=== PATIENT | male | born 2000 | race Caucasian/White ===

== ENCOUNTER 2022-12-18 23:42 | Inpatient (IN) | payer MEDICAID, OTHER, SELFPAY ==
[~2022-12-18] VITALS: Ht 185.4 cm; Wt 106.8 kg
[2022-12-18] MEDS ORDERED: MIDAZOLAM INJ 2MG/2ML VIAL IM ONE (23:45)
[2022-12-18] MEDS ORDERED: HALOPERIDOL 5MG/ML 1ML VIAL IM ONE (23:45)
[2022-12-18] MEDS ORDERED: diphenhydrAMINE 50MG/ML VIAL IM ONE (23:45)
[2022-12-19] MEDS ORDERED: UNRESOLVED CLARIFICATION ENTRY XX SCH (00:01)
[2022-12-19] MEDS ORDERED: ISOVUE-370 76% 100ML VIAL As Ordered ONE (00:27)
[2022-12-19 00:30] LABS: VENOUS BASE EXCESS -3.9 (-2.0-2.0); VENOUS HCO3 21.4 MMOL/L (23.0-27.0); VENOUS O2 SATURATION 98.2 % (60.0-80.0); VENOUS PARTIAL PRESSURE CO2 39.6 mmHg (38.0-50.0); VENOUS PARTIAL PRESSURE O2 135.9 mmHg (30.0-50.0); VENOUS STANDARD HCO3 21.3 MMOL/L; VENOUS TOTAL CO2 22.6 MMOL/L (24.0-28.0)
[2022-12-19 00:32] LABS: BASO % 0.5 % (0.0-1.0); EOS # 0.2 10^3/uL (0.0-0.5); EOS % 3.1 % (0.0-3.0); HEMATOCRIT 31.2 % (42.0-52.0); HEMOGLOBIN 10.5 g/dl (13.5-17.5); LYMPH # 2.4 10^3/uL (1.5-5.0); LYMPH % 41.1 % (24.0-44.0); MEAN CORPUSCULAR HEMOGLOBIN 29.7 pg (27.0-33.0); MEAN CORPUSCULAR HGB CONC 33.7 g/dl (32.0-36.5); MEAN CORPUSCULAR VOLUME 88.1 fl (80.0-96.0); MONO # 0.5 10^3/uL (0.0-0.8); MONO % 8.7 % (2.0-8.0); NEUTROPHILS # 2.6 10^3/uL (1.5-8.5); NEUTROPHILS % 46.1 % (36.0-66.0); PLATELET COUNT, AUTOMATED 150 10^3/uL (150-450); RED BLOOD COUNT 3.54 10^6/uL (4.30-6.10); WHITE BLOOD COUNT 5.7 10^3/uL (4.0-10.0)
[2022-12-19 00:40] LABS: APPEARANCE, URINE CLEAR (CLEAR); BACTERIA, URINE AUTO NEGATIVE (NEGATIVE); BILIRUBIN, URINE AUTO NEGATIVE (NEGATIVE); BLOOD, URINE BLOOD NEGATIVE (NEGATIVE); COLOR, URINE COLORLESS (YELLOW); GLUCOSE, URINE (UA) AUTO NEGATIVE (NEGATIVE); KETONE, URINE AUTO NEGATIVE (NEGATIVE); LEUKOCYTE ESTERASE, URINE AUTO NEGATIVE (NEGATIVE); NITRITE, URINE AUTO NEGATIVE (NEGATIVE); PROTEIN, URINE AUTO NEGATIVE (NEGATIVE); RBC, URINE AUTO 0 /HPF (0-3); SPECIFIC GRAVITY URINE AUTO 1.002 (1.002-1.035); SQUAMOUS EPITHELIAL CELL UR AU 0 /HPF (0-6); UROBILINOGEN, URINE AUTO 0.2 mg/dL (0.0-2.0); WBC, URINE AUTO 0 /HPF (0-3)
[2022-12-19 00:48] LABS: INR 0.97; PROTHROMBIN TIME 12.6 SECONDS (12.5-14.5)
[2022-12-19 00:49] LABS: PARTIAL THROMBOPLASTIN TIME 26.2 SECONDS (24.8-34.2)
[2022-12-19] MEDS ORDERED: DERMABOND TOPICAL SKIN ADHESIVE TOP ONE (00:55)
[2022-12-19 00:58] LABS: AMPHETAMINES LEVEL URINE NEGATIVE (NEGATIVE); BARBITURATES URINE NEGATIVE (NEGATIVE); CANNABINOIDS URINE NEGATIVE (NEGATIVE); COCAINE METABOLITE URINE NEGATIVE (NEGATIVE); METHADONE URINE NEGATIVE (NEGATIVE); OPIATES URINE NEGATIVE (NEGATIVE); PHENCYCLIDINE URINE NEGATIVE (NEGATIVE)
[2022-12-19 00:59] LABS: BENZODIAZEPINES URINE NEGATIVE (NEGATIVE)
[2022-12-19 01:00] LABS: LIPASE 48 U/L (12-53)
[2022-12-19 01:01] LABS: CK-MB VALUE MASS 1.1 NG/ML (<3.6)
[2022-12-19 01:02] LABS: ACETAMINOPHEN LEVEL < 2.0 UG/ML (10.0-20.0); ALBUMIN 4.1 G/DL (3.2-5.2); ALKALINE PHOSPHATASE 54 U/L (46-116); ALT/SGPT 28 U/L (7.0-40); AMYLASE 91 U/L (30-118); AST/SGOT 20 U/L (<34); BILIRUBIN,DIRECT 0.1 MG/DL (<0.4); BILIRUBIN,TOTAL 0.3 MG/DL (0.3-1.2); BLOOD UREA NITROGEN 9 MG/DL (9-23); CALCIUM LEVEL 8.4 MG/DL (8.5-10.1); CARBON DIOXIDE LEVEL 23 MMOL/L (20-31); CHLORIDE LEVEL 107 MMOL/L (98-107); CPK CREATINE PHOSPHOKINASE 294 U/L (46-171); CREATININE FOR GFR 0.86 MG/DL (0.70-1.30); GLUCOSE, FASTING 97 MG/DL (60-100); MB/CK RELATIVE INDEX 0.37 (< OR =4); POTASSIUM SERUM 3.5 MMOL/L (3.5-5.1); SALICYLATE LEVEL < 3.0 MG/DL (<30); SODIUM LEVEL 144 MMOL/L (136-145); TOTAL PROTEIN 7.1 G/DL (5.7-8.2)
[2022-12-19 01:16] LABS: ETHYL ALCOHOL (ETHANOL) 0.336 % (0.000-0.010)
[2022-12-19] MEDS ORDERED: NS 3,200 ML in IV 1 EA IV ONE (02:50)
[2022-12-19] MEDS ORDERED: MED REC CURRENTLY UNOBTAINABLE XX SCH (05:30)
[2022-12-19] MEDS ORDERED: NICOTINE 21MG/24HR 1 EA TRANSDERMAL TD ONE (06:05)
[2022-12-19] MEDS ORDERED: HOME MED LIST COMPLETE! XX SCH (06:10)
[2022-12-19] MEDS ORDERED: ACETAMINOPHEN TAB 650MG DOSE (2X325MG) PO PRN (20:40)
[2022-12-19] MEDS ORDERED: MOM 30ML SUSPENSION UDC PO PRN (20:40)
[2022-12-19] MEDS ORDERED: IBUPROFEN 400MG TAB PO PRN (20:40)
[2022-12-19] MEDS ORDERED: traZODone 50 MG TAB PO PRN (20:40)
[2022-12-19] MEDS ORDERED: diphenhydrAMINE 25MG CAP PO PRN (20:40)
[2022-12-19] MEDS ORDERED: MAALOX 30 ML SUSP *UDC PO PRN (20:40)
[2022-12-19 21:43] VITALS: BP 124/59; TEMP 97; O2SAT 97
[2022-12-19 23:34] VITALS: BP 124/59
[2022-12-19] MEDS ORDERED: LORazepam 2 MG TAB PO PRN (23:35)
[2022-12-20] MEDS: THIAMINE 100 MG TAB PO SCH ×3 (00:27→22:05)
[2022-12-20 06:02] VITALS: BP 114/58
[2022-12-20 06:25] VITALS: BP 114/58; TEMP 97.9; O2SAT 98
[2022-12-20] MEDS: FOLIC ACID 1MG TAB PO SCH (09:53)
[2022-12-20] MEDS: MULTIVITAMINS/MINERALS THERAP 1 TAB PO SCH (09:53)
[2022-12-20 15:00] VITALS: BP 128/70
[2022-12-20] MEDS: NICOTINE 21MG/24HR 1 EA TRANSDERMAL TD PRN (16:29)
[2022-12-20 18:25] VITALS: BP 128/70; TEMP 97.4; O2SAT 100
[2022-12-21 06:00] VITALS: BP 121/59
[2022-12-21] MEDS ORDERED: FOLI1TAB11 PO (06:18)
[2022-12-21] MEDS ORDERED: THIA100TA PO (06:18)
[2022-12-21] MEDS ORDERED: VITMTA PO (06:18)
[2022-12-21] MEDS ORDERED: NICO21PAT TD (06:18)
[2022-12-21 07:15] VITALS: BP 121/59; TEMP 97.1; O2SAT 97
[2022-12-21] MEDS: FOLIC ACID 1MG TAB PO SCH (08:36)
[2022-12-21] MEDS: THIAMINE 100 MG TAB PO SCH (08:36)
[2022-12-21] MEDS: MULTIVITAMINS/MINERALS THERAP 1 TAB PO SCH (08:36)
[2022-12-21] MEDS: NICOTINE 21MG/24HR 1 EA TRANSDERMAL TD PRN (08:36)
== END 2022-12-21 13:15 | disposition home or self-care (01) | DRG 755 ==
LOC: EDBD 23:42 → M ED 23:42 → M ED INP 12-19 20:39 → M PSY 12-19 21:45
PROVIDERS: ADMIT Student in an Organized Health Care Education/Training Program; ATTEND Student in an Organized Health Care Education/Training Program
DX: F43.25 Adjustment disorder with mixed disturbance of emotions and conduct (principal); F17.290 Nicotine dependence, other tobacco product, uncomplicated; F17.210 Nicotine dependence, cigarettes, uncomplicated; F17.220 Nicotine dependence, chewing tobacco, uncomplicated; F10.229 Alcohol dependence with intoxication, unspecified; S11.91XA Laceration without foreign body of unspecified part of neck, initial encounter; X78.9XXA Intentional self-harm by unspecified sharp object, initial encounter; Y92.009 Unspecified place in unspecified non-institutional (private) residence as the place of occurrence of the external cause; Z20.822 Contact with and (suspected) exposure to COVID-19